=== PATIENT | male | born 1955 | race African-American/Black ===

== ENCOUNTER 2019-09-13 19:59 | Emergency (ER) | payer SELFPAY ==
[2019-09-13] MEDS ORDERED: PROMETHAZINE INJ 25 MG/ML AMP ONE (20:29)
[2019-09-13] MEDS ORDERED: LIDOCAINE VISCOUS 2% SOLN 15 ML UDC ONE (20:29)
[2019-09-13] MEDS ORDERED: MAGNE/ALUM HYDROXD 30 ML UCUP ONE (20:29)
[2019-09-13 20:34] LABS: Absolute Lymphocytes (CBC) 3.6 K/uL (0.7-4.9); Basophils % 0.2 % (0-1.3); Hematocrit 41.9 % (39.6-49.0); Lymphocytes % 39.3 % (15.3-44.8); MPV 8.3 fL (7.6-11.3); RBC Red Blood Cell Count 4.79 M/uL (4.33-5.43)
--- NOTE | 2019-09-13 20:34 | RAD REPORT ---
EXAM DESCRIPTION: RAD - Chest Single View - 09/13/2019 8:23 pm CLINICAL HISTORY: PAIN COMPARISON: None TECHNIQUE: AP portable chest image was obtained 09/13/2019 8:23 pm . FINDINGS: Lungs are clear. Heart and vasculature are normal. No measurable pleural effusion and no p neumothorax. No acute bony abnormality seen. No acute aortic findings suspected. IMPRESSION: No acute cardiopulmonary process.
[2019-09-13 20:40] LABS: ALT/SGPT 79 U/L (12-78); AST/SGOT 70 U/L (15-37); Albumin 4.1 g/dL (3.4-5.0); Alkaline Phosphatase 95 U/L (45-117); BUN Blood Urea Nitrogen 8 mg/dL (7-18); Bicarbonate 20 mmol/L (21-32); Bilirubin Direct 0.4 mg/dL (0-0.2); Bilirubin Total 1.6 mg/dL (0.2-1.0); Glucose Level 102 mg/dL (74-106); Magnesium 2.1 mg/dL (1.8-2.4); NT PRO-BNP 11 pg/mL (<125); Potassium 3.5 mmol/L (3.5-5.1); Protein, Total 7.9 g/dL (6.4-8.2); Sodium Level 139 mmol/L (136-145); Troponin (Emerg Dept Use Only) < 0.02 ng/mL (0.0-0.045)
--- NOTE | 2019-09-13 21:12 | ER ---
Nurse's Notes [facility] Name: Hussain Velez Age: 64 yrs Sex: Male : 1955 Arrival Date: 09/13/2019 Time: 20:01 Bed 15 Private MD: Diagnosis: Eructation Presentation: 09/12 20:09 Chief complaint: Patient states: Belching, nausea and vomiting x 2-3 days. Denies ca1 abdominal pain. Coronavirus screen: Proceed with normal triage. Patient denies a cough. Patient denies shortness of breath or difficulty breathing. Patient denies measured and/or subjective temperature greater than 100.4F prior to today's visit. Patient denies travel on a cruise ship or to a country the [facility] currently lists as an affected area. Patient denies contact with known and/or suspected case of COVID-19. Ebola Screen: Patient negative for fever greater than or equal to 101.5 degrees Fahrenheit, and additional compatible Ebola Virus Disease symptoms Patient denies exposure to infectious person. Patient denies travel to an Ebola-affected area in the 21 days before illness onset. No symptoms or risks identified at this time. Initial Sepsis Screen: Does the patient meet any 2 criteria? No. Patient's initial sepsis screen is negative. Does the patient have a suspected source of infection? No. Patient's initial sepsis screen is negative. Risk Assessment: Do you want to hurt yourself or someone else? Patient reports no desire to harm self or others. Onset of symptoms was September 13, 2019. 20:09 Method Of Arrival: Ambulatory ca1 20:09 Acuity: CALEB 3 ca1 Historical: - Allergies: 20:10 No Known Allergies; ca1 - Home Meds: 20:10 None [Active]; ca1 - PMHx: 20:10 None; ca1 - PSHx: 20:10 None; ca1 - Immunization history:: Adult Immunizations up to date. - Social history:: Smoking status: Patient denies any tobacco usage or history of. Screenin:29 Abuse screen: Denies threats or abuse. Nutritional screening: No deficits noted. ea Tuberculosis screening: No symptoms or risk factors identified. Fall Risk None identified. Assessment: 20:34 General: Appears uncomfortable, Behavior is calm, cooperative, appropriate for age. ea Pain: Denies pain. Neuro: Level of Consciousness is awake, alert, obeys commands, Oriented to person, place, time, situation. Cardiovascular: Patient's skin is warm and dry. Respiratory: Airway is patent Respiratory effort is even, unlabored, Respiratory pattern is regular, symmetrical. GI: Abdomen is non-distended, Reports nausea. 21:24 Reassessment: Patient and/or family updated on plan of care and expected duration. Pain ea level reassessed. Patient is alert, oriented x 3, equal unlabored respirations, skin warm/dry/pink. Discharge instruction given to patient, verbalized the understanding of instruction . Pt left ED ambulatory tolerating well. Vital Signs: 20:09 BP 154 / 64; Pulse 100; Resp 19 S; Temp 99(TE); Pulse Ox 100% on R/A; Weight 72.57 kg ca1 (R); Height 6 ft. 2 in. (187.96 cm) (R); 21:00 BP 128 / 60; Pulse 98; Resp 18; Pulse Ox 99% ; ea 20:09 Body Mass Index 20.54 (72.57 kg, 187.96 cm) ca1 ED Course: 20:01 Patient arrived in ED. ds1 20:04 Angela Mckenna FNP-C is PHCP. kb 20:04 Chadwick Kirkland MD is Attending Physician. kb 20:10 Triage completed. ca1 20:10 Arm band placed on right wrist. ca1 20:18 No provider procedures requiring assistance completed. Initial lab(s) drawn, by me, ca1 sent to lab. Inserted saline lock: 20 gauge in right antecubital area, using aseptic technique. Blood collected. 20:19 Dayanara Bruner, RN is Primary Nurse. ea 20:23 XRAY Chest (1 view) In Process Unspecified. EDMS 20:29 Patient has correct armband on for positive identification. Bed in low position. Call ea light in reach. 21:20 IV discontinued, intact, bleeding controlled, No redness/swelling at site. Pressure ea dressing applied. Administered Medications: 20:28 Drug: Phenergan 12.5 mg Route: IVP; Site: right forearm; ea 21:20 Follow up: Response: No adverse reaction; Nausea is decreased ea 20:29 Drug: GI Cocktail without - (Maalox Suspension 30 ml, Lidocaine Liquid 2 % 15 ea ml) Route: PO; 21:20 Follow up: Response: No adverse reaction; Nausea is decreased kirsty Outcome: 21:12 Discharge ordered by MD. love 21:25 Discharged to home ambulatory, with family. kirsty 21:25 Condition: stable 21:25 Discharge instructions given to patient, Instructed on discharge instructions, follow up and referral plans. medication usage, Demonstrated understanding of instructions, follow-up care, medications, Prescriptions given X 1. 21:26 Patient left the ED. ea Signatures: Dispatcher [employer] EDAngela Chatman, JUICE STANDARDIZER-C JUICE STANDARDIZER-Kenia Gibbons ds1 Dayanara Bruner, RN RN Abi Rosario RN RN ca1
--- NOTE | 2019-09-13 21:12 | EDPHYS ---
Physician Documentation [facility] Name: Hussain Velez Age: 64 yrs Sex: Male : 1955 Arrival Date: 09/13/2019 Time: 20:01 Bed 15 Private MD: ED Physician Chadwikc Kirkland HPI: 09/12 20:29 This 64 yrs old Black Male presents to ER via Ambulatory with complaints of Vomiting. kb 20:29 The patient presents to the emergency department with vomiting. Onset: The kb symptoms/episode began/occurred 3 day(s) ago. Possible causes: unknown. The symptoms are aggravated by nothing. The symptoms are alleviated by nothing. Associated signs and symptoms: Pertinent positives: belching, vomiting, Pertinent negatives: abdominal pain, anorexia, constipation, diarrhea, dysuria, fever, flatulence, GI bleeding, hematuria, nausea. Severity of symptoms: At their worst the symptoms were moderate in the emergency department the symptoms are unchanged. The patient has not experienced similar symptoms in the past. The patient has not recently seen a physician. Historical: - Allergies: 20:10 No Known Allergies; ca1 - Home Meds: 20:10 None [Active]; ca1 - PMHx: 20:10 None; ca1 - PSHx: 20:10 None; ca1 - Immunization history:: Adult Immunizations up to date. - Social history:: Smoking status: Patient denies any tobacco usage or history of. ROS: 20:27 Constitutional: Negative for fever, chills, and weight loss, Neck: Negative for injury, kb pain, and swelling, Cardiovascular: Negative for chest pain, palpitations, and edema, Respiratory: Negative for shortness of breath, cough, wheezing, and pleuritic chest pain, Back: Negative for injury and pain, MS/Extremity: Negative for injury and deformity, Skin: Negative for injury, rash, and discoloration, Neuro: Negative for headache, weakness, numbness, tingling, and seizure. 20:27 Abdomen/GI: Positive for vomiting, belching. Exam: 20:27 Constitutional: This is a well developed, well nourished patient who is awake, alert, kb and in no acute distress. Head/Face: Normocephalic, atraumatic. Chest/axilla: Normal chest wall appearance and motion. Nontender with no deformity. No lesions are appreciated. Cardiovascular: Regular rate and rhythm with a normal S1 and S2. No gallops, murmurs, or rubs. Normal PMI, no JVD. No pulse deficits. Respiratory: Lungs have equal breath sounds bilaterally, clear to auscultation and percussion. No rales, rhonchi or wheezes noted. No increased work of breathing, no retractions or nasal flaring. Abdomen/GI: Soft, non-tender, with normal bowel sounds. No distension or tympany. No guarding or rebound. No evidence of tenderness throughout. Skin: Warm, dry with normal turgor. Normal color with no rashes, no lesions, and no evidence of cellulitis. MS/ Extremity: Pulses equal, no cyanosis. Neurovascular intact. Full, normal range of motion. Neuro: Awake and alert, GCS 15, oriented to person, place, time, and situation. Cranial nerves II-XII grossly intact. Motor strength 5/5 in all extremities. Sensory grossly intact. Cerebellar exam normal. Normal gait. 20:27 ECG was reviewed by the Attending Physician. Vital Signs: 20:09 BP 154 / 64; Pulse 100; Resp 19 S; Temp 99(TE); Pulse Ox 100% on R/A; Weight 72.57 kg ca1 (R); Height 6 ft. 2 in. (187.96 cm) (R); 21:00 BP 128 / 60; Pulse 98; Resp 18; Pulse Ox 99% ; ea 20:09 Body Mass Index 20.54 (72.57 kg, 187.96 cm) ca1 MDM: 20:04 Patient medically screened. kb 20:27 Data reviewed: vital signs, nurses notes. Data interpreted: Pulse oximetry: on room air kb is 100 %. Interpretation: normal. 21:10 Counseling: I had a detailed discussion with the patient and/or guardian regarding: the kb historical points, exam findings, and any diagnostic results supporting the discharge/admit diagnosis, lab results, radiology results, the need for outpatient follow up, a family practitioner, to return to the emergency department if symptoms worsen or persist or if there are any questions or concerns that arise at home. ED course: Symptoms resolved after treatment. Pt states "I feel good.". 09/12 20:08 Order name: Basic Metabolic Panel; Complete Time: 20:42 kb 09/12 20:08 Order name: CBC with Diff; Complete Time: 20:37 kb 09/12 20:08 Order name: LFT's; Complete Time: 20:42 kb 09/12 20:08 Order name: Magnesium; Complete Time: 20:42 kb 09/12 20:08 Order name: NT PRO-BNP; Complete Time: 20:42 kb 09/12 20:08 Order name: Troponin (emerg Dept Use Only); Complete Time: 20:42 kb 09/12 20:08 Order name: XRAY Chest (1 view); Complete Time: 20:37 kb 09/12 20:08 Order name: EKG; Complete Time: 20:09 kb 07 20:08 Order name: Cardiac monitoring; Complete Time: 20:29 kb 09/12 20:08 Order name: EKG - Nurse/Tech; Complete Time: 20:29 kb 09/12 20:08 Order name: IV Saline Lock; Complete Time: 20:18 kb 09/12 20:08 Order name: Labs collected and sent; Complete Time: 20:18 kb 09/12 20:08 Order name: O2 Per Protocol; Complete Time: 20:18 kb 09/12 20:08 Order name: O2 Sat Monitoring; Complete Time: 20:18 kb EC:27 Rate is 86 beats/min. Rhythm is regular. QRS [place] is Normal. HI interval is normal at kb 146 msec. QRS interval is normal at 96 msec. QT interval is normal at 364 msec. Administered Medications: 20:28 Drug: Phenergan 12.5 mg Route: IVP; Site: right forearm; ea 21:20 Follow up: Response: No adverse reaction; Nausea is decreased ea 20:29 Drug: GI Cocktail without - (Maalox Suspension 30 ml, Lidocaine Liquid 2 % 15 ea ml) Route: PO; 21:20 Follow up: Response: No adverse reaction; Nausea is decreased ea Disposition: 09/13 08:41 Co-signature as Attending Physician, Chadwick Kirkland MD I agree with the assessment and adilia plan of care. Disposition: 09/13/19 21:12 Discharged to Home. Impression: Eructation. - Condition is Stable. - Discharge Instructions: Nausea and Vomiting, Adult, [id number]. - Prescriptions for promethazine 25 mg Oral Tablet - take 1 tablet by ORAL route every 12 hours As needed; 20 tablet. - Medication Reconciliation Form, Thank You Letter, Antibiotic Education, Prescription Opioid Use form. - Follow up: Emergency Department; When: As needed; Reason: Worsening of condition. Follow up: Private Physician; When: 2 - 3 days; Reason: Recheck today's complaints, Continuance of care, Re-evaluation by your physician. Signatures: Dispatcher [employer] EDAngela Chatman, GEOPHYSICAL PROSPECTOR-C MAJO-Cahdwick Redmond MD MD cha Antunez, Elena RN Abi Higginbotham ea, RN RN ca1 Corrections: (The following items were deleted from the chart) 09/12 21:26 21:12 09/13/2019 21:12 Discharged to Home. Impression: Eructation. Condition is Stable. ea Forms are Medication Reconciliation Form, Thank You Letter, Antibiotic Education, Prescription Opioid Use. Follow up: Emergency Department; When: As needed; Reason: Worsening of condition. Follow up: Private Physician; When: 2 - 3 days; Reason: Recheck today's complaints, Continuance of care, Re-evaluation by your physician. kb
[2019-09-13 22:08] VITALS: BP 154/64; TEMP 99; O2SAT 100
--- NOTE | 2019-09-14 07:24 | EKG ---
Test Date: 2019-09-13 Test Time: 20:21:19 Occupational Therapy Professor: TITA MEASUREMENT RESULTS: Intervals: Rate: 86 MA: 146 QRSD: 96 QT: 364 QTc: 435 [place]: P: 76 MA: 146 QRS: 66 T: 55 INTERPRETIVE STATEMENTS: Normal sinus rhythm Voltage criteria for left ventricular hypertrophy Abnormal ECG No previous ECG available for comparison Electronically Signed On 09-14-19 07:22:54 CDT by Dao Reese
== END 2019-09-13 21:26 | disposition home or self-care (01) ==
LOC: ER 19:59
DX: R14.2 Eructation (principal)
CPT/HCPCS: 36415; 71045; 80048; 80076; 83735; 83880; 84484; 85025; 93005; 96374; 99284; J2550

== ENCOUNTER 2020-03-24 18:36 | Emergency (ER) | payer SELFPAY ==
[2020-03-24] MEDS ORDERED: HYDROCODONE/CHLORPHEN 5 ML/OSYR ONE (21:06)
[2020-03-24 21:53] LABS: SARS-COV-2 RT PCR NEGATIVE (NEGATIVE)
--- NOTE | 2020-03-24 22:02 | ER ---
Nurse's Notes [facility] Name: Hussain Velez Age: 65 yrs Sex: Male : 1955 Arrival Date: 03/24/2020 Time: 18:37 Bed 20 Private MD: Diagnosis: Streptococcal pharyngitis Presentation: 03/24 18:43 Chief complaint: Patient states: Started feeling bad 5 days ago. Muscle and joint ca1 pains. Today, started coughing and SOB. Denies fever. Coronavirus screen: Client denies travel out of the [place] in the last 14 days. congestion, cough unrelated to allergies, muscle pain, shortness of breath, Client presents with at least one sign or symptom that may indicate coronavirus-19. Standard/surgical mask placed on the client. Provider contacted for isolation considerations. Ebola Screen: Patient negative for fever greater than or equal to 101.5 degrees Fahrenheit, and additional compatible Ebola Virus Disease symptoms Patient denies exposure to infectious person. Patient denies travel to an Ebola-affected area in the 21 days before illness onset. No symptoms or risks identified at this time. Initial Sepsis Screen: Does the patient meet any 2 criteria? No. Patient's initial sepsis screen is negative. Does the patient have a suspected source of infection? No. Patient's initial sepsis screen is negative. Risk Assessment: Do you want to hurt yourself or someone else? Patient reports no desire to harm self or others. Onset of symptoms was March 24, 2020. 18:43 Method Of Arrival: Ambulatory ca1 18:43 Acuity: CALEB 3 ca1 Historical: - Allergies: 18:45 No Known Allergies; ca1 - Home Meds: 18:45 None [Active]; ca1 - PMHx: 18:45 None; ca1 - PSHx: 18:45 None; ca1 - Immunization history:: Flu vaccine is not up to date. - Social history:: Smoking status: Patient/guardian denies using tobacco, Stopped _ months ago 3. Screenin:28 Abuse screen: Denies threats or abuse. Nutritional screening: No deficits noted. ea Tuberculosis screening: No symptoms or risk factors identified. Fall Risk None identified. Assessment: 20:27 General: Appears in no apparent distress. Behavior is calm, cooperative, appropriate ea for age. Pain: Denies pain. Neuro: Level of Consciousness is awake, alert, obeys commands, Oriented to person, place, time. Cardiovascular: Patient's skin is warm and dry. Respiratory: Airway is patent Respiratory effort is even, unlabored, Respiratory pattern is regular, symmetrical. Derm: Skin is pink, warm \T\ dry. 22:04 Reassessment: Patient and/or family updated on plan of care and expected duration. Pain ea level reassessed. Patient is alert, oriented x 3, equal unlabored respirations, skin warm/dry/pink. Discharge instruction given to patient verbalized the understanding of instruction, pt left ED ambulatory tolerating well. Vital Signs: 18:43 BP 140 / 99; Pulse 84; Resp 16 S; Temp 97.2(TE); Pulse Ox 99% on R/A; Weight 70.31 kg ca1 (R); Height 6 ft. 2 in. (187.96 cm) (R); 22:00 BP 130 / 76; Pulse 80; Resp 17; Temp 97.0; Pulse Ox 99% ; ea 18:43 Body Mass Index 19.90 (70.31 kg, 187.96 cm) ca1 ED Course: 18:37 Patient arrived in ED. as 18:45 Triage completed. ca1 18:45 Arm band placed on right wrist. ca1 20:14 Dayanara Bruner, MAGGI is Primary Nurse. ea 20:23 Hermilo Mata NP is PHCP. pm1 20:23 Tyrell Maria MD is Attending Physician. pm1 20:31 Patient has correct armband on for positive identification. Bed in low position. Call ea light in reach. Side rails up X 1. Pulse ox on. NIBP on. 20:55 CXR XRAY In Process Unspecified. EDMS 22:08 No provider procedures requiring assistance completed. Patient did not have IV access ea during this emergency room visit. Administered Medications: 20:56 Drug: Tussionex Pennkinetic ER 5 ml Route: PO; ea 22:00 Follow up: Response: No adverse reaction ea Outcome: 22:01 Discharge ordered by . pm1 22:08 Discharged to home ambulatory, with family. ea 22:08 Condition: stable 22:08 Discharge instructions given to patient, Instructed on discharge instructions, follow up and referral plans. medication usage, Demonstrated understanding of instructions, follow-up care, medications. 22:09 Patient left the ED. ea Signatures: Dispatcher [employer] Dayana Reed Patrick, WOOL HANDLER WOOL HANDLER pm1 Dayanara Bruner, RN RN ea Abi Meneses RN RN ca1
--- NOTE | 2020-03-24 22:02 | EDPHYS ---
Physician Documentation [facility] Name: Hussain Velez Age: 65 yrs Sex: Male : 1955 Arrival Date: 03/24/2020 Time: 18:37 Bed 20 Private MD: ED Physician Tyrell Maria HPI: 03/24 20:45 This 65 yrs old Black Male presents to ER via Ambulatory with complaints of Fever, pm1 Cough, Congestion. 20:45 The patient or guardian reports cough, with no sputum. Onset: The symptoms/episode pm1 began/occurred this morning. Severity of symptoms: in the emergency department the symptoms are unchanged. Modifying factors: The symptoms are alleviated by nothing, the symptoms are aggravated by nothing. Associated signs and symptoms: Pertinent positives: fever, sore throat, Pertinent negatives: chest pain, shortness of breath. The patient has not recently seen a physician. Historical: - Allergies: 18:45 No Known Allergies; ca1 - Home Meds: 18:45 None [Active]; ca1 - PMHx: 18:45 None; ca1 - PSHx: 18:45 None; ca1 - Immunization history:: Flu vaccine is not up to date. - Social history:: Smoking status: Patient/guardian denies using tobacco, Stopped _ months ago 3. ROS: 20:45 Cardiovascular: Negative for chest pain, palpitations, and edema. pm1 20:45 Abdomen/GI: Negative for abdominal pain, nausea, vomiting, diarrhea, and constipation, Back: Negative for injury and pain, MS/Extremity: Negative for injury and deformity, Skin: Negative for injury, rash, and discoloration, Neuro: Negative for headache, weakness, numbness, tingling, and seizure. 20:45 Constitutional: Positive for fever, Negative for poor PO intake. 20:45 ENT: Positive for sore throat, Negative for ear pain. 20:45 Respiratory: Positive for cough, Negative for shortness of breath, sputum production, wheezing. Exam: 20:45 Constitutional: This is a well developed, well nourished patient who is awake, alert, pm1 and in no acute distress. Head/Face: Normocephalic, atraumatic. 20:45 Back: No spinal tenderness. No costovertebral tenderness. Full range of motion. Skin: Warm, dry with normal turgor. Normal color with no rashes, no lesions, and no evidence of cellulitis. MS/ Extremity: Pulses equal, no cyanosis. Neurovascular intact. Full, normal range of motion. 20:45 ENT: External ear(s): are unremarkable, Ear canal(s): are normal, TM's: are normal, Posterior pharynx: no acute changes, Tonsils: are normal in appearance, no enlargement, no erythema, no exudate, no ulcerations, peritonsillar mass, is not appreciated. 20:45 Cardiovascular: Exam negative for acute changes, Rate: normal, Rhythm: regular, Pulses: no pulse deficits are appreciated. 20:45 Respiratory: Exam negative for acute changes, respiratory distress, shortness of breath. 20:45 Neuro: Exam negative for acute changes, Orientation: is normal, Mentation: is normal, Motor: is normal, moves all fours. Vital Signs: 18:43 BP 140 / 99; Pulse 84; Resp 16 S; Temp 97.2(TE); Pulse Ox 99% on R/A; Weight 70.31 kg ca1 (R); Height 6 ft. 2 in. (187.96 cm) (R); 22:00 BP 130 / 76; Pulse 80; Resp 17; Temp 97.0; Pulse Ox 99% ; ea 18:43 Body Mass Index 19.90 (70.31 kg, 187.96 cm) ca1 MDM: 20:23 Patient medically screened. pm1 22:00 Data reviewed: vital signs. Counseling: I had a detailed discussion with the patient pm1 and/or guardian regarding: the historical points, exam findings, and any diagnostic results supporting the discharge/admit diagnosis, the need for outpatient follow up, to return to the emergency department if symptoms worsen or persist or if there are any questions or concerns that arise at home. 03/24 20:23 Order name: CXR XRAY pm1 03/24 20:23 Order name: Strep; Complete Time: 21:19 pm1 03/24 21:54 Order name: COVID-19/FLU A+B; Complete Time: 22:00 EDMS 03/24 20:23 Order name: Droplet/Contact Precautions; Complete Time: 21:04 pm1 03/24 20:23 Order name: Labs collected and sent; Complete Time: 21:04 pm1 01/24 20:23 Order name: O2 Per Protocol; Complete Time: 20:32 pm1 Administered Medications: 20:56 Drug: Tussionex Pennkinetic ER 5 ml Route: PO; ea 22:00 Follow up: Response: No adverse reaction ea Disposition: 03/25 07:10 Co-signature as Attending Physician, Tyrell Maria MD. [facility] Disposition: 03/24/20 22:01 Discharged to Home. Impression: Streptococcal pharyngitis. - Condition is Stable. - Discharge Instructions: Strep Throat, [id number]. - Prescriptions for Zithromax Z- Mykel 250 mg Oral Tablet - take 1 tablet by ORAL route as directed for 5 days Day 1 - take two (2) tablets one time. Day 2, 3, 4 , 5 take one (1) tablet once daily.; 6 tablet. - Medication Reconciliation Form, Thank You Letter, Antibiotic Education, Prescription Opioid Use form. - Follow up: Emergency Department; When: As needed; Reason: Worsening of condition. Follow up: Private Physician; When: 2 - 3 days; Reason: Recheck today's complaints, Continuance of care, Re-evaluation by your physician. - Problem is new. - Symptoms have improved. Signatures: Dispatcher [employer] EDOK Hermilo Mata, TELEGRAPHIC INSTRUMENT SUPERVISOR TELEGRAPHIC INSTRUMENT SUPERVISOR pm1 Dayanara Bruner RN RN ea Acob, Cheryl, RN RN ca1 Holmes, Maurice, MD MD [facility] Corrections: (The following items were deleted from the chart) 03/24 20:53 20:24 Influenza Screen (A \T\ B)+BA.LAB.BRZ ordered. EDOK EDOK 20:54 20:24 CORONAVIRUS+MR.LAB.BRZ ordered. EDOK EDMS 22:09 22:01 03/24/2020 22:01 Discharged to Home. Impression: Streptococcal pharyngitis. ea Condition is Stable. Forms are Medication Reconciliation Form, Thank You Letter, Antibiotic Education, Prescription Opioid Use. Follow up: Emergency Department; When: As needed; Reason: Worsening of condition. Follow up: Private Physician; When: 2 - 3 days; Reason: Recheck today's complaints, Continuance of care, Re-evaluation by your physician. Problem is new. Symptoms have improved. pm1
[2020-03-24 22:25] VITALS: O2SAT 99
[2020-03-24 22:26] VITALS: BP 130/76; TEMP 97
--- NOTE | 2020-03-25 08:27 | RAD REPORT ---
EXAM DESCRIPTION: RAD - Chest Single View - 03/24/2020 8:55 pm CLINICAL HISTORY: COUGH Chest pain. COMPARISON: Chest Single View dated 09/13/2019 FINDINGS: Portable technique limits examination quality. The lungs are grossly clear. The heart is normal in size. No displaced fractures. IMPRESSION: No acute intrathoracic process suspected.
== END 2020-03-24 22:09 | disposition home or self-care (01) ==
LOC: ER 18:36
DX: J02.0 Streptococcal pharyngitis (principal); Z20.822 Contact with and (suspected) exposure to COVID-19
CPT/HCPCS: 0240U; 71045; 87081; 99283

== ENCOUNTER 2020-09-21 12:08 | Emergency (ER) | payer SELFPAY ==
[2020-09-21 13:42] LABS: Protime INR 1.21
[2020-09-21 13:55] LABS: ALT/SGPT 89 U/L (12-78); AST/SGOT 111 U/L (15-37); Albumin 3.1 g/dL (3.4-5.0); Alkaline Phosphatase 132 U/L (45-117); BUN Blood Urea Nitrogen 16 mg/dL (7-18); Bicarbonate 28 mmol/L (21-32); Bilirubin Direct 0.3 mg/dL (0-0.2); Bilirubin Total 0.7 mg/dL (0.2-1.0); Glucose Level 186 mg/dL (74-106); NT PRO-BNP 30 pg/mL (<125); Potassium 4.1 mmol/L (3.5-5.1); Protein, Total 6.2 g/dL (6.4-8.2); Sodium Level 138 mmol/L (136-145); Troponin (Emerg Dept Use Only) < 0.02 ng/mL (0.0-0.045)
[2020-09-21 13:57] LABS: Absolute Lymphocytes (CBC) 0.9 K/uL (0.7-4.9); Basophils % 1.3 % (0-1.3); Hematocrit 35.6 % (39.6-49.0); Lymphocytes % 19.3 % (15.3-44.8); MPV 7.9 fL (7.6-11.3)
[2020-09-21] MEDS ORDERED: THIAMINE 200 MG/2 ML INJ ONE (13:58)
[2020-09-21] MEDS ORDERED: NA CHLORIDE 0.9% 1,000 ML ONE (13:58)
[2020-09-21] MEDS ORDERED: ONDANSETRON 4 MG (ODT) TAB ONE (14:02)
--- NOTE | 2020-09-21 14:18 | RAD REPORT ---
EXAM DESCRIPTION: Jayne Single View09/21/2020 2:08 pm CLINICAL HISTORY: Cough COMPARISON: March 2020 FINDINGS: The lungs appear clear of acute infiltrate. The heart is normal size IMPRESSION: No acute abnormalities displayed
--- NOTE | 2020-09-21 14:31 | ER ---
Nurse's Notes [facility] Name: Hussain Velez Age: 65 yrs Sex: Male : 1955 Arrival Date: 09/21/2020 Time: 12:09 Bed 8 Private MD: Diagnosis: Alcohol abuse;Adjustment disorder with depressed mood Presentation: 09/21 13:09 Chief complaint: Patient states: Pt was sent over by his PCP for his Potassium 6.0. kg Coronavirus screen: Client denies travel out of the [place] in the last 14 days. At this time, unable to obtain information related to travel outside the [place] At this time, the client does not indicate any symptoms associated with coronavirus-19. Ebola Screen: Patient negative for fever greater than or equal to 101.5 degrees Fahrenheit, and additional compatible Ebola Virus Disease symptoms Patient denies exposure to infectious person. Patient denies travel to an Ebola-affected area in the 21 days before illness onset. Initial Sepsis Screen: Does the patient meet any 2 criteria? No. Patient's initial sepsis screen is negative. Does the patient have a suspected source of infection?. Risk Assessment: Do you want to hurt yourself or someone else? Patient reports no desire to harm self or others. Onset of symptoms was September 19, 2020. 13:09 Method Of Arrival: Ambulatory kg 13:09 Acuity: CALEB 3 kg Triage Assessment: 13:12 General: Appears in no apparent distress. Behavior is calm, cooperative, appropriate kg for age, quiet. Pain: Denies pain. Historical: - Allergies: 13:13 No Known Allergies; kg - Home Meds: 13:13 None [Active]; kg - PMHx: 13:13 Depression; Alcoholism; kg - PSHx: 13:13 None; kg - Immunization history:: Adult Immunizations not up to date, Client reports receiving the 2nd dose of the Covid vaccine, Date received: September 11, 2020. - Social history:: Smoking status: Patient reports the use of cigarette tobacco products, denies chronic smoking, but will smoke occasionally, Patient uses alcohol, on a daily basis. - Family history:: not pertinent. Screenin:12 Abuse screen: Denies threats or abuse. Denies injuries from another. Nutritional kg screening: No deficits noted. Tuberculosis screening: No symptoms or risk factors identified. Fall Risk None identified. Fall in past 12 months (25 points). No secondary diagnosis (0 pts). Ambulatory Aid- None/Bed Rest/Nurse Assist (0 pts). Gait- Normal/Bed Rest/Wheelchair (0 pts) Mental Status- Oriented to own ability (0 pts). Total Colon Fall Scale indicates No Risk (0-24 pts). Assessment: 13:31 General: Appears in no apparent distress. uncomfortable, Behavior is calm, cooperative, jl7 appropriate for age. Pain: Denies pain. Neuro: Level of Consciousness is awake, alert, obeys commands, Oriented to person, place, time, situation. Cardiovascular: Denies chest pain, Patient's skin is warm and dry. Respiratory: Airway is patent Respiratory effort is even, unlabored, Respiratory pattern is regular, symmetrical, Denies shortness of breath. GI: No signs and/or symptoms were reported involving the gastrointestinal system. Derm: Skin is pink, warm \T\ dry. Vital Signs: 13:09 BP 117 / 96; Pulse 72; Resp 20; Temp 98.5(O); Pulse Ox 99% on R/A; Weight 64.41 kg; kg Height 6 ft. 2 in. (187.96 cm) (R); Pain 0/10; 13:31 BP 127 / 88; Pulse 70; Resp 15; Pulse Ox 100% ; Pain 0/10; jl7 13:09 Body Mass Index 18.23 (64.41 kg, 187.96 cm) kg ED Course: 12:09 Patient arrived in ED. ds1 13:12 Triage completed. kg 13:12 Patient has correct armband on for positive identification. kg 13:12 Arm band placed on. kg 13:18 Chadwick Kirkland MD is Attending Physician. [facility] 13:18 Brooklyn Tilley, MAGGI is Primary Nurse. jl7 13:31 monitoring and evaluation advisor on. Pulse ox on. NIBP on. jl7 13:31 Initial lab(s) drawn, by az, sent to lab. EKG done, by ED staff, reviewed by Chadwick Kirkland MD. Inserted saline lock: 20 gauge in right forearm, using aseptic technique. Blood collected. 14:08 XRAY Chest (1 view) In Process Unspecified. EDMS 14:42 No provider procedures requiring assistance completed. IV discontinued, intact, jl7 bleeding controlled, No redness/swelling at site. Pressure dressing applied. Administered Medications: 13:49 Drug: Thiamine 100 mg Route: IV; Rate: bolus; Site: right forearm; jl7 13:55 Follow up: Response: No adverse reaction; IV Status: Completed infusion jl7 13:49 Drug: NS 0.9% 1000 ml Route: IV; Rate: 1 bolus; Site: right forearm; jl7 14:40 Follow up: Response: No adverse reaction; IV Status: Completed infusion; IV Intake: jl7 1000ml Intake: 14:40 IV: 1000ml; Total: 1000ml. jl7 Outcome: 14:31 Discharge ordered by . adilia 14:42 Discharged to home ambulatory, with friend. Alvaro 14:42 Condition: stable 14:42 Discharge instructions given to patient, friend, Instructed on discharge instructions, follow up and referral plans. Demonstrated understanding of instructions, follow-up care, medications, Prescriptions given X 1. 14:43 Patient left the ED. jl7 Signatures: Dispatcher [employer] EDMS Chadwick Kirkland MD MD cha Sanford, Demi ds1 Brooklyn Tilley RN RN jl7 Maria Ines Brooks, MAGGI RN kg Corrections: (The following items were deleted from the chart) 13:14 13:13 PMHx: None; kg kg
--- NOTE | 2020-09-21 14:31 | EDPHYS ---
Physician Documentation [facility] Name: Hussain Velez Age: 65 yrs Sex: Male : 1955 Arrival Date: 09/21/2020 Time: 12:09 Bed 8 Private MD: ED Physician Chadwick Kirkland HPI: 09/21 13:32 This 65 yrs old Black Male presents to ER via Ambulatory with complaints of Abnormal adilia Lab Results. 13:32 told potassium 6. Onset: The symptoms/episode began/occurred just prior to arrival. adilia Severity of symptoms: At their worst the symptoms were very mild in the emergency department the symptoms are unchanged. The patient has not experienced similar symptoms in the past. Historical: - Allergies: 13:13 No Known Allergies; kg - Home Meds: 13:13 None [Active]; kg - PMHx: 13:13 Depression; Alcoholism; kg - PSHx: 13:13 None; kg - Immunization history:: Adult Immunizations not up to date, Client reports receiving the 2nd dose of the Covid vaccine, Date received: September 11, 2020. - Social history:: Smoking status: Patient reports the use of cigarette tobacco products, denies chronic smoking, but will smoke occasionally, Patient uses alcohol, on a daily basis. - Family history:: not pertinent. ROS: 13:32 Constitutional: Negative for fever, chills, and weight loss, Eyes: Negative for injury, adilia pain, redness, and discharge, ENT: Negative for injury, pain, and discharge, Neck: Negative for injury, pain, and swelling, Cardiovascular: Negative for chest pain, palpitations, and edema, Respiratory: Negative for shortness of breath, cough, wheezing, and pleuritic chest pain, Abdomen/GI: Negative for abdominal pain, nausea, vomiting, diarrhea, and constipation, Back: Negative for injury and pain, : Negative for injury, bleeding, discharge, and swelling, MS/Extremity: Negative for injury and deformity, Skin: Negative for injury, rash, and discoloration, Neuro: Negative for headache, weakness, numbness, tingling, and seizure, Psych: Negative for depression, anxiety, suicide ideation, homicidal ideation, and hallucinations, Allergy/Immunology: Negative for hives, rash, and allergies, Endocrine: Negative for neck swelling, polydipsia, polyuria, polyphagia, and marked weight changes, Hematologic/Lymphatic: Negative for swollen nodes, abnormal bleeding, and unusual bruising. 14:31 Psych: Positive for depression, Negative for visual hallucinations, homicidal ideation, adilia suicide gesture, suicidal ideation. Exam: 13:32 Constitutional: This is a well developed, well nourished patient who is awake, alert, adilia and in no acute distress. Head/Face: Normocephalic, atraumatic. Eyes: Pupils equal round and reactive to light, extra-ocular motions intact. Lids and lashes normal. Conjunctiva and sclera are non-icteric and not injected. Cornea within normal limits. Periorbital areas with no swelling, redness, or edema. ENT: Nares patent. No nasal discharge, no septal abnormalities noted. Tympanic membranes are normal and external auditory canals are clear. Oropharynx with no redness, swelling, or masses, exudates, or evidence of obstruction, uvula midline. Mucous membranes moist. Neck: Trachea midline, no thyromegaly or masses palpated, and no cervical lymphadenopathy. Supple, full range of motion without nuchal rigidity, or vertebral point tenderness. No Meningismus. Chest/axilla: Normal chest wall appearance and motion. Nontender with no deformity. No lesions are appreciated. Cardiovascular: Regular rate and rhythm with a normal S1 and S2. No gallops, murmurs, or rubs. Normal PMI, no JVD. No pulse deficits. Respiratory: Lungs have equal breath sounds bilaterally, clear to auscultation and percussion. No rales, rhonchi or wheezes noted. No increased work of breathing, no retractions or nasal flaring. Abdomen/GI: Soft, non-tender, with normal bowel sounds. No distension or tympany. No guarding or rebound. No evidence of tenderness throughout. Back: No spinal tenderness. No costovertebral tenderness. Full range of motion. Male : Normal genitalia with no discharge or lesions. Skin: Warm, dry with normal turgor. Normal color with no rashes, no lesions, and no evidence of cellulitis. MS/ Extremity: Pulses equal, no cyanosis. Neurovascular intact. Full, normal range of motion. Neuro: Awake and alert, GCS 15, oriented to person, place, time, and situation. Cranial nerves II-XII grossly intact. Motor strength 5/5 in all extremities. Sensory grossly intact. Cerebellar exam normal. Normal gait. Psych: Awake, alert, with orientation to person, place and time. Behavior, mood, and affect are within normal limits. 13:37 ECG was reviewed by the Attending Physician. [facility] Vital Signs: 13:09 BP 117 / 96; Pulse 72; Resp 20; Temp 98.5(O); Pulse Ox 99% on R/A; Weight 64.41 kg; kg Height 6 ft. 2 in. (187.96 cm) (R); Pain 0/10; 13:31 BP 127 / 88; Pulse 70; Resp 15; Pulse Ox 100% ; Pain 0/10; jl7 13:09 Body Mass Index 18.23 (64.41 kg, 187.96 cm) kg MDM: 13:18 Patient medically screened. [facility] 13:33 Differential Diagnosis. Data reviewed: vital signs, nurses notes, lab test result(s), [facility] EKG, radiologic studies, plain films. Data interpreted: athletic monitor: rate is 70 beats/min, Pulse oximetry: on room air is 100 %. Test interpretation: by ED physician or midlevel provider: ECG, plain radiologic studies. Counseling: I had a detailed discussion with the patient and/or guardian regarding: the historical points, exam findings, and any diagnostic results supporting the discharge/admit diagnosis, lab results, radiology results. 09/21 13:19 Order name: Basic Metabolic Panel; Complete Time: 14:30 [facility] 09/21 13:19 Order name: CBC with Diff [facility] 09/21 13:19 Order name: LFT's; Complete Time: 14:30 [facility] 09/21 13:19 Order name: Magnesium; Complete Time: 14:30 [facility] 09/21 13:19 Order name: NT PRO-BNP; Complete Time: 14:30 [facility] 09/21 13:19 Order name: PT-INR; Complete Time: 14:30 [facility] 09/21 13:19 Order name: Troponin (emerg Dept Use Only); Complete Time: 14:30 [facility] 09/21 13:19 Order name: XRAY Chest (1 view); Complete Time: 14:30 [facility] 09/21 13:19 Order name: EKG; Complete Time: 13:19 [facility] 09/21 13:19 Order name: Cardiac monitoring; Complete Time: 13:31 [facility] 09/21 13:19 Order name: EKG - Nurse/Tech; Complete Time: 13: [facility] 09/21 13:19 Order name: IV Saline Lock; Complete Time: [facility] 09/21 13:19 Order name: Labs collected and sent; Complete Time: [facility] 09/21 13:19 Order name: O2 Per Protocol; Complete Time: [facility] 09/21 13:19 Order name: O2 Sat Monitoring; Complete Time: [facility] EC:37 Rate is 67 beats/min. Rhythm is regular. QRS [place] is Normal. SC interval is normal. QRS adilia interval is normal. QT interval is normal. No Q waves. T waves are Normal. No ST changes noted. Clinical impression: NSR w/ Non-specific ST/T Changes and No evidence of ischemia. Interpreted by me. Reviewed by me. Administered Medications: 13:49 Drug: Thiamine 100 mg Route: IV; Rate: bolus; Site: right forearm; jl7 13:55 Follow up: Response: No adverse reaction; IV Status: Completed infusion jl7 13:49 Drug: NS 0.9% 1000 ml Route: IV; Rate: 1 bolus; Site: right forearm; jl7 14:40 Follow up: Response: No adverse reaction; IV Status: Completed infusion; IV Intake: jl7 1000ml Disposition Summary: 09/21/20 14:31 Discharge Ordered Location: Home adilia Problem: new adilia Symptoms: have improved adilia Condition: Stable adilia Diagnosis - Alcohol abuse adilia - Adjustment disorder with depressed mood adilia Followup: adilia - With: Private Physician - When: 2 - 3 days - Reason: Recheck today's complaints, Continuance of care, Re-evaluation by your physician Discharge Instructions: - Discharge Summary Sheet adilia - Adjustment Disorder, Adult adilia - Alcohol Intoxication adilia - Alcohol Use Disorder adilia - Alcohol Abuse and Nutrition adilia Forms: - Medication Reconciliation Form adilia - Thank You Letter adilia - Antibiotic Education adilia - Prescription Opioid Use adilia Prescriptions: - multivit with min-folic acid - take 1 tablet by ORAL route once daily; 30 tablet; Refills: 0, Product adilia Selection Permitted Signatures: Dispatcher [employer] Chadwick Perkins MD MD cha Leal, Jahala RN RN jl7 Maria Ines Brooks RN RN kg Corrections: (The following items were deleted from the chart) 13:14 13:13 PMHx: None; kg kg
[2020-09-21 14:56] VITALS: TEMP 98.5
[2020-09-21 14:57] VITALS: BP 127/88; O2SAT 100
[2020-09-21 16:00] LABS: Blood Morphology Comment NOTED (NOT SEEN); Platelet Estimate ADEQ
[2020-09-21 16:01] LABS: Anisocytosis SLIGHT; Poikilocytosis 1+; Polychromasia 1+; Target Cells 1+
== END 2020-09-21 14:43 | disposition home or self-care (01) ==
LOC: ER 12:08
DX: F10.20 Alcohol dependence, uncomplicated (principal); F43.21 Adjustment disorder with depressed mood; F17.210 Nicotine dependence, cigarettes, uncomplicated
CPT/HCPCS: 36415; 71045; 80048; 80076; 83735; 83880; 84484; 85025; 85610; 93005; 96361; 96374; 99284; J3411; J7030